=== PATIENT | male | born 1980 | race Caucasian/White ===

== ENCOUNTER 2019-08-01 16:21 | Emergency (ER) | payer OTHER ==
[~2019-08-01] VITALS: Ht 188 cm; Wt 128.4 kg
[~2019-08-01 16:21] MED LIST: OMEPRAZOLE20 MG PO; PERCOCET 10-321 EACH PO; SERTRALINE HCL100 MG PO
[2019-08-01] MEDS ORDERED: BACTRIM DS TAB1 EACH PO (16:55)
== END 2019-08-01 17:03 | disposition home or self-care (01) ==
LOC: ED 16:21
DX: L02.215 Cutaneous abscess of perineum (principal); F17.200 Nicotine dependence, unspecified, uncomplicated; Z88.6 Allergy status to analgesic agent; Z88.8 Allergy status to other drugs, medicaments and biological substances; Z79.899 Other long term (current) drug therapy
CPT/HCPCS: 99283

== ENCOUNTER 2019-11-26 09:45 | Day surgery (SDC) | payer OTHER ==
[~2019-11-26] VITALS: Ht 185.4 cm; Wt 133.4 kg
[~2019-11-26 09:45] MED LIST changes: +BACTRIM DS TAB1 EACH PO; +METOPROLOL SUCC50 MG PO; +VENTOLIN HFA18 GM INH
--- NOTE | 2019-11-26 12:54 | NUR ---
11/26/19 1254 Dari Yao 1242 PT ARRIVED IN PACU AWAKE WITH NO C/O'S. 1255 RESTING. REU.
--- NOTE | 2019-11-27 08:06 | OR ---
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 PROCEDURE: 1. Incision and drainage of left perineal abscess. 2. Deep wound cultures. ESTIMATED BLOOD LOSS: None. INDICATIONS: Ramon is a 39-year-old gentleman with a body mass index of 39, although not formally diabetic, his preoperative glucose was a little high at 208. Consequently, we are going to check hemoglobin A1c level here in our recovery room. He had developed pain and swelling between the anus and the scrotum on the left side in May 2019. It finally broke through the skin. He went to his primary care provider. A CT scan on July 16, 2019 showed a little haziness in the subcutaneous area, but nothing otherwise except for about bilateral inguinal hernias. He does not seem to have any significant issues with the hernias. The culture had been taken and it grew out anaerobes. He was on Bactrim and that helped settle this whole issue down. He thought he was having some rectal bleeding, but as the inflammation settled down, he realized the blood was coming from the opening in his skin. He had been asked to see me as a local general surgeon. I met with Ramon and his in the office. On exam, we could see two small opening [id number] in the skin with a little bit of pus. Just a little bit induration remaining. No blood at that time. I had explained to Ramon and his this could be simple subcutaneous perineal abscess or could be a perianal fistula traveling to the anterior midline. Less likely it would involve the scrotum. Specifically, he has had no complaints about the scrotum or his testicle or his urination. Consequently, we scheduled him for an exam under anesthesia with incision and drainage of abscess and deep wound cultures. I reviewed with Ramon and his the nature of the surgery along with the risks including, but not limited to bleeding, infection, scarring, change in contour of the skin as well as possible need for additional surgery and/or treatments. He had expressed understanding and wished to proceed. Electronically Signed By: FAUSTO GOODWIN MD 11/27/19 0806 PATIENT NAME: RAMON ANGELO OPERATIVE REPORT DATE OF : 80 REPORT #: [id number] PHYSICIAN: FAUSTO GOODWIN MD PCP: RAUL MCCLENDON DO REPORT IS CONFIDENTIAL AND NOT TO BE RELEASED WITHOUT AUTHORIZATION [facility] [address], [place] [address] Signed DESCRIPTION OF PROCEDURE: I met with Ramon and his in our preop area. Overall, he said he is feeling much better on the Bactrim. He said he has realized that the blood is actually coming out of the anus. He said it feels much better. We were able to identify that area and tita it appropriately. After this, we took Ramon into our operating room and placed him in a prone gisel-knife position under general endotracheal tube anesthesia. He was given preoperative antibiotics along with subcutaneous heparin. SCDs were utilized. He was then prepped and draped in usual sterile fashion. He had received a fleets enema in the preop area. We used our half-morales retractor and examined the full circumference of the anal canal and in particular the dentate line. With direct palpation, I could not feel a fistula tract nor find any fistula opening along the dentate line, particularly in the anterior midline. On direct palpation area, I did not feel any fistula tract headed anywhere near the hemiscrotum. There were two small opening atut-li-essl with a small bridge of skin in between and probably 2 mm in width. We simply unroofed that with the help of our cautery. Underneath was a routine granulation tissue. We began to probe that with our lacrimal probe and there was no tract headed over toward the anus. In fact, it tracked up into the left hemiscrotum. The track was large enough right up the track and into the hemiscrotum without any resistance whatsoever. Interestingly, no additional pus or drainage from above in the scrotum, the scrotal skin was quite supple. We debrided some of the granulation tissue and had taken deep wound cultures. We then packed that with Dakin's soaked gauze and covered that with a dry ABD and underwear. After that, Ramon was rotated into the supine position on hospital bed and weaned from his anesthesia, extubated in the OR and taken to recovery room in stable condition. Ramon tolerated the procedure quite well. Fausto Goodwin MD ALB/MODL /[id number] cc: MD Raul Jones DO Electronically Signed By: FAUSTO GOODWIN MD 11/27/19805 PATIENT NAME: RAMON ANGELO OPERATIVE REPORT DATE OF : 80 REPORT #: [id number] PHYSICIAN: FAUSTO GOODWIN MD PCP: RAUL MCCLENDON DO REPORT IS CONFIDENTIAL AND NOT TO BE RELEASED WITHOUT AUTHORIZATION [address] [address] Signed Copies: FAUSTO GOODWIN MD, ARIAN DO ~ Electronically Signed By: FAUSTO GOODWIN MD 11/27/19 0806 PATIENT NAME: RAMON ANGELO OPERATIVE REPORT DATE OF : 80 REPORT #: [id number] PHYSICIAN: FAUSTO GOODWIN MD PCP: RAUL MCCLENDON DO REPORT IS CONFIDENTIAL AND NOT TO BE RELEASED WITHOUT AUTHORIZATION
== END 2019-11-26 14:50 | disposition home or self-care (01) ==
LOC: DS 09:45
PROVIDERS: Colon & Rectal Surgery
PROC: 0DBQ0ZZ Excision of Anus, Open Approach (ICD-10-PCS; principal; 2019-11-26 12:15)
DX: K60.3 Anal fistula (principal); I10 Essential (primary) hypertension; K21.9 Gastro-esophageal reflux disease without esophagitis; F32.9 Major depressive disorder, single episode, unspecified; E66.01 Morbid (severe) obesity due to excess calories; F17.220 Nicotine dependence, chewing tobacco, uncomplicated; Z79.899 Other long term (current) drug therapy; Z68.38 Body mass index [BMI] 38.0-38.9, adult
CPT/HCPCS: 00902; 36415; 83036; J0330; J1100; J1644; J2250; J2405; J2704; J2765; J3010; J3490; J7121

== ENCOUNTER 2020-12-02 09:12 | Emergency (ER) | payer OTHER ==
[~2020-12-02] VITALS: Ht 185.4 cm; Wt 107.0 kg
[~2020-12-02 09:12] MED LIST changes: +ATORVASTATIN CA20 MG PO; +FLOVENT HFA10.6 GM INH; +METFORMIN HCL1000 MG PO; +ZESTRIL5 MG PO
--- NOTE | 2020-12-02 14:47 | EKG ---
[facility] [address] [facility] [place], [place] [address] Signed Normal sinus rhythm Normal ECG When compared with ECG of 19-AUG-2020 09:34, No significant change was found Confirmed by DEBO NEGRO MD ([id number]) on 12/02/2020 2:47:49 PM Electronically Signed By: DEBO NEGRO MD 12/02/20 1447 PATIENT NAME: RAMON ANGELO MATILDE Electrocardiogram DATE OF : 80 PHYSICIAN: DEBO NEGRO MD REPORT #: [id number] REPORT IS CONFIDENTIAL AND NOT TO BE RELEASED WITHOUT AUTHORIZATION
== END 2020-12-02 13:43 | disposition home or self-care (01) ==
LOC: ED 09:12
DX: R55 Syncope and collapse (principal); K42.0 Umbilical hernia with obstruction, without gangrene; Z87.891 Personal history of nicotine dependence; Z88.8 Allergy status to other drugs, medicaments and biological substances; Z88.6 Allergy status to analgesic agent; Z79.899 Other long term (current) drug therapy; Z79.84 Long term (current) use of oral hypoglycemic drugs; Z20.822 Contact with and (suspected) exposure to COVID-19
CPT/HCPCS: 74177; 80053; 85025; 93005; 93010; 99284-25; C9803; Q9967; U0003

== ENCOUNTER 2022-01-20 06:49 | Day surgery (SDC) | payer OTHER ==
[~2022-01-20] VITALS: Ht 185.4 cm; Wt 122.7 kg
[~2022-01-20 06:49] MED LIST changes: +BENADRYL25 MG PO
--- NOTE | 2022-01-20 09:30 | NUR ---
01/20/22 0930 Thu Castillo 0923- PT ARRIVES TO PACU NONAROUSABLE TO NOXIOUS STIMULI WITH AN OPA IN PLACE. PT ALSO NEEDING A JAW THRUST TO MAINTAIN A PATENT AIRWAY. RESP EVEN AND UNLABORED. OXYGEN SAT HIGH 90'S TO 100% ON 10L VIA MASK. 0926- PT MOVING AROUND IN BED. PT INSTRUCTED TO OPEN HIS MOUTH TO REMOVE THE OPA. PT IS ABLE TO DO THIS. OXYGEN MASK REPLACED AT 10L. 0928- PT MAKING JOKES TO THE NURSES AND LAUGHING. PT REPORTS HE IS HAVING "SOME" ABD PAIN. OXYGEN TITRATED OFF.
--- NOTE | 2022-01-20 10:07 | NUR ---
PT SITTING UP IN BED. PT PROVIDED JELL-O, CRACKERS, AND WATER PER HIS REQUEST. PT TOLERATING WELL. PT REPORTS HIS ABD PAIN TO BE A 2/10, STATES THIS IS TOLERABLE FOR HIM. PT DENIES NAUSEA.
--- NOTE | 2022-01-20 10:44 | NUR ---
AMB TO BR, VOIDS 300MLS. DOING WELL.
--- NOTE | 2022-01-21 07:14 | OR ---
[facility] [address], [place] [address] Signed DATE OF OPERATION: 01/20/2022 SURGEON: Fausto Goodwin MD PREOPERATIVE DIAGNOSIS: Incarcerated umbilical hernia (12 mm). POSTOPERATIVE DIAGNOSIS: Incarcerated umbilical hernia (12 mm). PROCEDURE: Primary repair of incarcerated umbilical hernia with intraabdominal Ventralex mesh (6.4 cm). ESTIMATED BLOOD LOSS: None. INDICATIONS: Ramon is a 41-year-old, obese, diabetic gentleman, who I have been asked to see me for an incarcerated symptomatic umbilical hernia. He believes it has been there about two years. It has been increasing in size. 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 He said even sitting up more than 10 or 15 minutes was causing him pain. He has to frequently lie down. He has been unable to push the hernias back inside. CT scan showed the herniated fat measuring around 37 x 20 x 46 mm. His fascial defect is around 12 mm. The overlying skin is getting thin. To his knowledge, it has never been infected. He and his had been referred to my office. I gave them our brochure on hernias. We had reviewed the nature of his umbilical hernia. We reviewed primary suture repair versus mesh repair. He understands the expected intraop and postop course. There is risk including, but not limited to bleeding, infection, scarring, change in contour of the skin, damage to bowel, infection of mesh requiring removal, recurrent hernias, and chronic pain. He had expressed understanding and wished to proceed. DESCRIPTION OF PROCEDURE: I met with Ramon and his in our preop area. We all agreed on his umbilical hernia. He was then taken in the operating room and placed in the supine position under general endotracheal tube anesthesia. He was given preoperative antibiotics along with subcutaneous heparin. SCDs were utilized. He was prepped and draped in the usual sterile fashion. Once he was pharmacologically paralyzed, actually with fair amount of effort, we were able to reduce the herniated fat. We utilized a standard infraumbilical Electronically Signed By: FAUSTO GOODWIN MD 01/21/22 0714 PATIENT NAME: RAMON ANGELO OPERATIVE REPORT DATE OF : 80 REPORT #: [id number] PHYSICIAN: FAUSTO GOODWIN MD PCP: NAYE MCCARTHY MD REPORT IS CONFIDENTIAL AND NOT TO BE RELEASED WITHOUT AUTHORIZATION [facility] [address], [place] [address] Signed transverse incision and carried that on and around the umbilicus bluntly and with the cautery. The hernia sac was from the fascial defect with the help of the cautery. The umbilical hernia sac was excised and passed off the field. His fascial defect was around 12 mm. We therefore chose our 6.4 cm round Ventralex mesh. We placed that inside the abdomen and brought up, flushed against the posterior abdominal wall. The fascial defect was closed transversely with a running #1 Prolene suture. Several passes of the suture went through the tab on the mesh to help hold it in place. The tab was cut, flushed with the abdominal wall and discarded. Local anesthetic was copiously injected in the abdominal wall as well as the subcutaneous tissues. The umbilical skin was held down to the midline fascia with an interrupted 2-0 PDS suture. The dermis was reapproximated with interrupted 3-0 subcuticular Monocryl sutures. The skin edges were reapproximated with a running 5-0 fast absorbing plain gut suture. Dry gauze and tape were then applied. After this, he was awakened from his anesthesia, extubated in the OR, and taken to the recovery room in stable condition. Fausto Goodwin MD ALB/MODL /[id number] cc: MD Naye Jones MD Patient Chart Copies: FAUSTO GOODWIN MD ~ Electronically Signed By: FAUSTO GOODWIN MD 01/21/22 0714 PATIENT NAME: RAMON ANGELO OPERATIVE REPORT DATE OF : 80 REPORT #: [id number] PHYSICIAN: FAUSTO GOODWIN MD PCP: NAYE MCCARTHY MD REPORT IS CONFIDENTIAL AND NOT TO BE RELEASED WITHOUT AUTHORIZATION
== END 2022-01-20 11:00 | disposition home or self-care (01) ==
LOC: DS 06:49
PROVIDERS: ATTEND Colon & Rectal Surgery
PROC: 0WUF0JZ Supplement Abdominal Wall with Synthetic Substitute, Open Approach (ICD-10-PCS; principal; 2022-01-20 08:10)
DX: K42.0 Umbilical hernia with obstruction, without gangrene (principal); I10 Essential (primary) hypertension; E66.9 Obesity, unspecified; E11.9 Type 2 diabetes mellitus without complications; Z87.891 Personal history of nicotine dependence; K21.9 Gastro-esophageal reflux disease without esophagitis; Z88.8 Allergy status to other drugs, medicaments and biological substances
CPT/HCPCS: J0330; J0690; J1100; J1644; J1885; J2250; J2405; J2704; J2765; J3010; J7121